=== PATIENT | female | born 1960 | race Caucasian/White ===

== ENCOUNTER → 2017-01-01 14:37 | Emergency (ER) | payer BC ==
--- NOTE | 2017-01-01 15:09 | ED ---
Complex/Multi-Sys Presentation - HPI Summary HPI Summary: Patient lost her balance and fell against the edge of a coffee table. She landed on her left ribs and thought she would be fine but today she has a bruise and pain with coughing, sneezing or deep breaths. She denies CP, SOB or abdominal pain. 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 Onset/Duration: Sudden Onset Timing: Constant Severity Currently: Severe Severity Initially: Mild Location: Pain At: - left ribs Character: Sharp Aggravating Factor(s): sneezing, coughing, deep breaths - Allergies/Home Medications Allergies/Adverse Reactions: Allergies Allergy/AdvReac Type Severity Reaction Status Date / Time No Known Allergies Allergy Verified 01/01/17 14:43 PMH/Surg Hx/FS Hx/Imm Hx Endocrine/Hematology History: Denies: Hx Anticoagulant Therapy, Hx Diabetes, Hx Thyroid Disease Cardiovascular History: Denies: Hx Hypertension, Hx Pacemaker/ICD Respiratory History: Denies: Hx Asthma, Hx Chronic Obstructive Pulmonary Disease (COPD) GI History: Denies: Hx Ulcer History: Denies: Hx Renal Disease Musculoskeletal History: Denies: Hx Scoliosis Sensory History: Denies: Hx Hearing Aid Neurological History: Reports: Hx Headaches Denies: Hx Dementia, Hx Seizures Psychiatric History: Denies: Hx Panic Disorder, Hx Substance Abuse - Cancer History Hx Chemotherapy: No Hx Radiation Therapy: No - Surgical History Surgery Procedure, Year, and Place: 2 - C SECTIONS Infectious Disease History: No Infectious Disease History: Reports: Hx Shingles Denies: Hx Clostridium Difficile, Hx Hepatitis, Hx Human Immunodeficiency Virus (HIV), Hx of Known/Suspected MRSA, Hx Tuberculosis, Hx Known/Suspected VRE , Hx Known/Suspected VRSA, History Other Infectious Disease, Traveled Outside the [place] in Last 30 Days - Family History Known Family History: Positive: None - Social History Occupation: Employed Full-time Lives: With Family Alcohol Use: Occasionally Substance Use Type: Reports: None Smoking Status (MU): Never Smoked Tobacco Review of Systems Negative: Chest Pain Negative: Shortness Of Breath Negative: Abdominal Pain Negative: Edema Positive: Bruising Negative: Weakness, Paresthesia, Numbness All Other Systems Reviewed And Are Negative: Yes Physical Exam Triage Information Reviewed: Yes Vital Signs On Initial Exam: Initial Vitals Temp Pulse Resp BP Pulse Ox 98.1 F 73 16 134/70 100 01/01/17 14:39 01/01/17 14:39 01/01/17 14:39 01/01/17 14:39 01/01/17 14:39 Vital Signs Reviewed: Yes Appearance: Positive: Well-Appearing, Well-Nourished, Pain Distress Skin: Positive: Warm, Skin Color Reflects Adequate Perfusion, Dry, Soft Head/Face: Positive: Normal Head/Face Inspection Eyes: Positive: EOMI, VERONICA, Conjunctiva Clear ENT: Positive: Hearing grossly normal Neck: Positive: Supple, Nontender Respiratory/Lung Sounds: Positive: Clear to Auscultation, Breath Sounds Present. Negative: Rales, Rhonchi, Subcutaneous Emphysema, Stridor, Tracheal Deviation, Wheezes Cardiovascular: Positive: RRR Abdomen Description: Positive: Nontender, Soft Bowel Sounds: Positive: Present Musculoskeletal: Negative: Edema Left, Edema Right Neurological: Positive: Sensory/Motor Intact, Alert, Oriented to Person Place, Time, NV Bundle Intact Distally, Normal Gait Psychiatric: Positive: Affect/Mood Appropriate AVPU Assessment: Alert Diagnostics - Vital Signs Vital Signs Temp Pulse Resp BP Pulse Ox 01/01/17 14:39 98.1 F 73 16 134/70 100 - Laboratory Lab Statement: Any lab studies that have been ordered have been reviewed, and results considered in the medical decision making process. - Radiology No standard instances Xray Interpretation: No Acute Changes Radiology Interpretation Completed By: Radiologist Complex Multi-Symp Course/Dx - Diagnoses Differential Diagnoses/HQI/PQRI: Aspiration, Closed Cranial Trauma, CVA, Metabolic Abnormality, Sepsis Provider Diagnoses: Contusion of rib on left side Discharge - Discharge Plan Condition: Stable Disposition: HOME Patient Education Materials: Rib Contusion (ED) Referrals: King Palmer MD [Primary Care Provider] - Additional Instructions: Please use ibuprofen 600mg three times daily with meals for the next 3-5 days to decrease pain. Apply ice or heat as needed. Maximum pain and swelling is 3-5 days after injury. Try to take a deep breath once every hour to decrease the risk of pneumonia. Follow-up with your primary care provider if you have concerns. Return to the emergency department if your symptoms worsen.
--- NOTE | 2017-01-01 15:41 | RAD ---
Indication: LEFT side rib pain following injury yesterday. Comparison: No relevant prior exams available on the [facility] [place]. Technique: 4 view LEFT unilateral rib series. Report: No rib fracture, pleural effusion, or pneumothorax evident. Unremarkable soft tissue contours. The heart appears enlarged. Unremarkable central pulmonary vasculature and mediastinal contours. IMPRESSION: No LEFT rib fracture evident.
[2017-01-01 16:08] VITALS: BP 154/67
== END | disposition home or self-care (01) ==
LOC: ED 14:37
DX: S20.212A Contusion of left front wall of thorax, initial encounter (principal); R05 Cough; R06.7 Sneezing; W19.XXXA Unspecified fall, initial encounter; Y93.9 Activity, unspecified; Y92.9 Unspecified place or not applicable; Y99.9 Unspecified external cause status
CPT/HCPCS: 99281

== ENCOUNTER 2017-01-06 16:45 | Emergency (ER) | payer BC ==
[2017-01-06] MEDS ORDERED: Ketorolac INJ* 60 MG/2 ML VIAL IM ONE (20:23)
--- NOTE | 2017-01-06 21:05 | RAD ---
HISTORY: Fall onto left rib pain COMPARISONS: January 01, 2017 VIEWS: 8, Frontal view of the chest with frontal and oblique views of the left hemithorax FINDINGS: There is questionable nondisplaced fracture of lateral aspect of the left 10th rib. There is minimal linear atelectasis of left lung base. There is no appreciable pneumothorax. IMPRESSION: QUESTIONABLE NONSPECIFIC FRACTURE OF LEFT 10TH RIB. NO PNEUMOTHORAX.
[2017-01-06] MEDS ORDERED: oxyCODONE/Acetamin 5/325 MG* TAB PO ONE (21:27)
--- NOTE | 2017-01-06 21:27 | ED ---
I, Shar,Carolann, scribed for Mohan Beal MD on 01/06/17 at 2025 . HPI Chest Pain - HPI Summary HPI Summary: This 56 y/o female presents to ED for persistnet left lateral rib pain since a week ago. Pt reports slipping and falling onto a coffee table at time of onset. Pt was seen for the same complaint last week, during which pt was sent home with 1-week work note, benign CXR, and pain medications. Pt decided to visit ED today when pt persists. Positive dyspnea. Deep breath, walking, and any movement makes the pain worse. Pt denies any PMHx. - History of Current Complaint Chief Complaint: EDShortnessOfBreath Time Seen by Provider: 01/06/17 20:19 Hx Obtained From: Patient, Medical Records Onset/Duration: Started Weeks Ago, Traumatic, Still Present Pain Intensity: 9 Pain Scale Used: 0-10 Numeric Chest Pain Location: Left Lateral Chest Pain Radiates: No Character: Sharp/Stabbing Aggravating Factor(s): Exertion, Movement, Deep Breaths Alleviating Factor(s): Rest Associated Signs and Symptoms: Positive: Chest Pain, Shortness of Breath. Negative: Fever - Allergy/Home Medications Allergies/Adverse Reactions: Allergies Allergy/AdvReac Type Severity Reaction Status Date / Time No Known Allergies Allergy Verified 01/01/17 14:43 PMH/Surg Hx/FS Hx/Imm Hx Endocrine/Hematology History: Denies: Hx Anticoagulant Therapy, Hx Diabetes, Hx Thyroid Disease Cardiovascular History: Denies: Hx Hypertension, Hx Pacemaker/ICD Respiratory History: Denies: Hx Asthma, Hx Chronic Obstructive Pulmonary Disease (COPD) GI History: Denies: Hx Ulcer History: Denies: Hx Renal Disease Musculoskeletal History: Denies: Hx Scoliosis Sensory History: Denies: Hx Hearing Aid Neurological History: Reports: Hx Headaches Denies: Hx Dementia, Hx Seizures Psychiatric History: Denies: Hx Panic Disorder, Hx Substance Abuse - Cancer History Hx Chemotherapy: No Hx Radiation Therapy: No - Surgical History Surgery Procedure, Year, and Place: 2 - C SECTIONS Infectious Disease History: No Infectious Disease History: Reports: Hx Shingles Denies: Hx Clostridium Difficile, Hx Hepatitis, Hx Human Immunodeficiency Virus (HIV), Hx of Known/Suspected MRSA, Hx Tuberculosis, Hx Known/Suspected VRE , Hx Known/Suspected VRSA, History Other Infectious Disease, Traveled Outside the [place] in Last 30 Days - Family History Known Family History: Negative: Other - Negative Breast CA - Social History Alcohol Use: Occasionally Hx Substance Use: No Substance Use Type: Reports: None Hx Tobacco Use: No Smoking Status (MU): Never Smoked Tobacco Review of Systems Negative: Fever Positive: Chest Pain - left lateral Positive: Shortness Of Breath All Other Systems Reviewed And Are Negative: Yes Physical Exam Triage Information Reviewed: Yes Vital Signs On Initial Exam: Initial Vitals Temp Pulse Resp BP Pulse Ox 98.0 F 65 20 125/69 100 01/06/17 16:48 01/06/17 16:48 01/06/17 16:48 01/06/17 16:48 01/06/17 16:48 Vital Signs Reviewed: Yes Appearance: Positive: Well-Appearing, Pain Distress - mild discomfort Skin: Positive: Warm, Other - eechymotic area lt lower lat chest wall Head/Face: Positive: Normal Head/Face Inspection Eyes: Positive: VERONICA ENT: Positive: Hearing grossly normal Neck: Positive: Supple Respiratory/Lung Sounds: Positive: Breath Sounds Present, Other - tende lt lat lower chest wall Cardiovascular: Positive: Normal Abdomen Description: Positive: Nontender, Soft Bowel Sounds: Positive: Present Musculoskeletal: Positive: Strength/ROM Intact Neurological: Positive: Sensory/Motor Intact, Alert, Oriented to Person Place, Time Psychiatric: Positive: Affect/Mood Appropriate - Damaso Coma Scale Coma Scale Total: 15 Diagnostics - Vital Signs Vital Signs Temp Pulse Resp BP Pulse Ox 01/06/17 18:47 98.5 F 76 20 126/63 100 01/06/17 17:55 97.6 F 68 20 112/71 100 01/06/17 16:50 98.0 F 69 20 125/69 100 01/06/17 16:48 98.0 F 65 20 125/69 100 - Laboratory Lab Statement: Any lab studies that have been ordered have been reviewed, and results considered in the medical decision making process. - Radiology Rib w/Chest Xray Interpretation: Positive (See Comments) - QUESTIONABLE NONSPECIFIC FRACTURE OF LEFT 10TH RIB. NO PNEUMOTHORAX. Radiology Interpretation Completed By: Radiologist Re-Evaluation - Re-Evaluation First Eval Re-Evaluation Time: 21:28 Change: Improved Comment: MD in room to update pt on X-ray imaging results. Plan of care involving discharge, pain medication to go, and outpatient f/u is discussed with pt. Chest Pain Course/Dx - Course Assessment/Plan: This 56 y/o female presents to ED for persistent left lateral rib pain since a week ago. Pt injured her left rib a week ago when she slipped and fell onto a coffee table. Pt was evaluated at ED and then was discharged with benign CXR and pain medication. Pt came back today when pain persisted. Unilateral left rib with Chest X-ray indicates questionable nonspecific fracture of 10th rib, negative PTX. Imaging studies were shared with pt, and she is at this time agreeable with discharge plan with pain meds, another 1- week work note, and outpatient follow up. - Diagnoses Provider Diagnoses: Left rib fracture Discharge - Discharge Plan Condition: Improved Disposition: HOME Patient Education Materials: Rib Fracture (ED) Forms: *Work Release Referrals: King Palmer MD [Primary Care Provider] - 2 Days The documentation as recorded by the Shar ceron Soohyun accurately reflects the service I personally performed and the decisions made by me, Mohan Beal MD.
[2017-01-06 21:38] VITALS: BP 137/70
== END 2017-01-06 21:41 | disposition home or self-care (01) ==
LOC: ED 16:45
DX: S22.32XA Fracture of one rib, left side, initial encounter for closed fracture (principal); R07.9 Chest pain, unspecified; R06.02 Shortness of breath; X58.XXXA Exposure to other specified factors, initial encounter; Y93.9 Activity, unspecified; Y92.9 Unspecified place or not applicable
CPT/HCPCS: 99282; A9270-GY; J1885

== ENCOUNTER 2018-08-07 16:47 | Emergency (ER) | payer BC ==
--- NOTE | 2018-08-07 16:52 | UC ---
Hip/Pelvis Pain - HPI Summary HPI Summary: 57 yo female presents with right sided lower back and right hip pain. She tells me that on 08/04 she fell on the ice and landed on her back. She was seen here on 08/05 for left rib pain and dx'd with a contusion. Since that time she has developed right sided lower back and hip pain that is worse with movement. She has been taking NSAIDs and baclofen with little relief. Denies radiation of pain , numbness, or tingling. Denies saddle anesthesia or loss of bowel/bladder control. - History Of Current Complaint Stated Complaint: HIP INJURY Time Seen by Provider: 08/07/18 16:49 Hx Obtained From: Patient Onset/Duration: Gradual Onset Severity Initially: Moderate Severity Currently: Severe Pain Intensity: 9 Pain Scale Used: 0-10 Numeric - Allergies/Home Medications Allergies/Adverse Reactions: Allergies Allergy/AdvReac Type Severity Reaction Status Date / Time No Known Allergies Allergy Verified 08/07/18 16:58 PMH/Surg Hx/FS Hx/Imm Hx - Additional Past Medical History Additional PMH: None Other History Of: Negative For: Anticoagulant Therapy - Surgical History Surgical History: Yes Surgery Procedure, Year, and Place: 2 - C SECTIONS - Family History Known Family History: Positive: Hypertension Negative: Other - Negative Breast CA - Social History Occupation: Employed Full-time Lives: With Family Alcohol Use: Occasionally Substance Use Type: None Smoking Status (MU): Never Smoked Tobacco - Immunization History Most Recent Tetanus Shot: > 10 years Review of Systems All Other Systems Reviewed And Are Negative: Yes Constitutional: Positive: Negative Skin: Positive: Negative Respiratory: Positive: Negative Cardiovascular: Positive: Negative Gastrointestinal: Positive: Negative Neurovascular: Positive: Negative Musculoskeletal: Positive: Other: - Right lower back and hip pain Neurological: Positive: Negative Psychological: Positive: Negative Physical Exam - Summary Physical Exam Summary: GENERAL: NAD. WDWN. No pain distress. SKIN: No rashes, sores, lesions, or open wounds. NECK: Supple. FROM. Nontender. No lymphadenopathy. CHEST: CTAB. No r/r/w. No accessory muscle use. Breathing comfortably and in no distress. CV: RRR. Without m/r/g. Pulses intact. Cap refill <2seconds MSK: TTP over RIGHT SI. Pain with flexion and extension of spine. Negative SLR b /l. Positive ANASTASIA for back pain on right. Strength 5/5 B/L LEs including dorsiflexion and plantar flexion. FROM B/L LEs. No edema. NEURO: Alert. Sensations intact B/L LEs L3-S1. PSYCH: Age appropriate behavior. Triage Information Reviewed: Yes Vital Signs: Vital Signs: Temp Pulse Resp BP Pulse Ox 97.6 F 66 16 140/73 99 08/07/18 16:52 08/07/18 16:52 08/07/18 16:52 08/07/18 16:52 08/07/18 16:52 Vital Signs Reviewed: Yes Hip Injury Course/Dx - Course Course Of Treatment: XR lumbar: IMPRESSION: #. New compared with January 01, 2017 although otherwise age indeterminate mild anterior. osteoporotic compression fracture of the T12 vertebral body. No gross radiographic acute. features. XR hip: IMPRESSION: #. No radiographic evidence for RIGHT hip fracture. As x-rays may be negative with. nondisplaced hip fracture if there is persistent clinical concern MRI or in setting of. contraindication to MRI or limitation in emergent access to MRI CT would be suggested. Discussed findings with pt. Advised to continue rest, ice, and will refill her muscle relaxer. Advised to f/ u with PCP for a recheck. - Differential Dx/Diagnosis Provider Diagnosis: Right hip pain, Low back pain Discharge - Sign-Out/Discharge Documenting (check all that apply): Patient Departure All imaging exams completed and their final reports reviewed: Yes - Discharge Plan Condition: Stable Disposition: HOME Prescriptions: Baclofen TAB* [Lioresal TAB*] 10 mg PO BID PRN #20 tab PRN Reason: Pain Lidocaine PATCH 5%* [Lidoderm 5% Patch*] 1 patch TRANSDERM DAILY PRN #1 box PRN Reason: Pain Patient Education Materials: Contusion in Adults (ED) Forms: *Work Release Referrals: King Palmer MD [Primary Care Provider] - Additional Instructions: If you develop a fever, shortness of breath, chest pain, new or worsening symptoms - please call your PCP or go to the ED. Your blood pressure was high at todays visit. Please see your primary provider within 4 weeks for recheck and re-evaluation. - Billing Disposition and Condition Condition: STABLE Disposition: Home - Attestation Statements Provider Attestation: I was available for consult. This patient was seen by the [facility]. The patient was not presented to, seen by, or examined by me. -Juan A
[2018-08-07 16:57] VITALS: BP 140/73
== END 2018-08-07 18:15 | disposition home or self-care (01) ==
LOC: UCEAST 16:47
DX: M25.551 Pain in right hip (principal); M54.5 Low back pain
CPT/HCPCS: 72110; 99212; G0463

== ENCOUNTER 2019-04-08 10:33 | Emergency (ER) | payer BC ==
[2019-04-08] MEDS ORDERED: Ibuprofen TAB* 600 MG PO ONE (10:45)
[2019-04-08] MEDS ORDERED: Acetaminophen TAB* 325 MG PO ONE (10:45)
--- NOTE | 2019-04-08 10:46 | ED ---
HPI Chest Pain - HPI Summary HPI Summary: 58 year old F presenting to [facility] with a chief complaint of right sided rib pain since falling off an air mattress and landing on her right side on hard wood floor last night. The patient rates the pain 8/10 in severity. Symptoms aggravated by deep breathing, movement, and exertion. Symptoms alleviated by nothing. Patient denies cough. Patient states she has been sleeping on a leaky air mattress 1-2 feet off the ground for the last several days as she has recently moved. Patient states she has chronic lower back pain since slipping on ice in July 2018. Patient states took 3 ibuprofen last night for her back pain but hasn't taken anything for the pain today. Patient denies taking any other medications. Surgical hx C-sections x2. Patient reports drinking alcohol occasionally, denies smoking cigarettes and using drugs. Medications reviewed. Allergies noted. - History of Current Complaint Chief Complaint: EDChestWallPain Time Seen by Provider: 04/08/19 10:36 Hx Obtained From: Patient Hx Last Menstrual Period: post Onset/Duration: Started Days Ago - 3, Still Present Timing: Constant Current Severity: Severe Pain Intensity: 8 Pain Scale Used: 0-10 Numeric Chest Pain Radiates: No Aggravating Factor(s): Exertion, Movement, Deep Breaths Alleviating Factor(s): Nothing Associated Signs and Symptoms: Positive: Negative - cough - Allergy/Home Medications Allergies/Adverse Reactions: Allergies Allergy/AdvReac Type Severity Reaction Status Date / Time No Known Allergies Allergy Verified 04/08/19 10:33 Home Medications: Home Medications NK [No Home Medications Reported] 04/08/19 [History Confirmed 04/08/19] PMH/Surg Hx/FS Hx/Imm Hx Endocrine/Hematology History: Denies: Hx Anticoagulant Therapy, Hx Diabetes, Hx Thyroid Disease Cardiovascular History: Denies: Hx Hypertension, Hx Pacemaker/ICD Respiratory History: Denies: Hx Asthma, Hx Chronic Obstructive Pulmonary Disease (COPD) GI History: Denies: Hx Ulcer History: Denies: Hx Renal Disease Musculoskeletal History: Denies: Hx Scoliosis Sensory History: Denies: Hx Hearing Aid Neurological History: Reports: Hx Headaches Denies: Hx Dementia, Hx Seizures Psychiatric History: Denies: Hx Panic Disorder, Hx Substance Abuse - Cancer History Hx Chemotherapy: No Hx Radiation Therapy: No - Surgical History Surgery Procedure, Year, and Place: 2 - C SECTIONS Infectious Disease History: No Infectious Disease History: Reports: Hx Shingles Denies: Hx Clostridium Difficile, Hx Hepatitis, Hx Human Immunodeficiency Virus (HIV), Hx of Known/Suspected MRSA, Hx Tuberculosis, Hx Known/Suspected VRE , Hx Known/Suspected VRSA, History Other Infectious Disease, Traveled Outside the [place] in Last 30 Days - Family History Known Family History: Positive: Hypertension Negative: Other - Negative Breast CA - Social History Alcohol Use: Occasionally Hx Substance Use: No Substance Use Type: Reports: None Hx Tobacco Use: No Smoking Status (MU): Never Smoked Tobacco Review of Systems Negative: Cough Positive: Other - right sided rib pain All Other Systems Reviewed And Are Negative: Yes Physical Exam - Summary Physical Exam Summary: Constitutional: Well-developed, Well-nourished, Alert. (-) Distressed Skin: Warm, Dry HENT: Normocephalic; Atraumatic Eyes: Conjunctiva normal Neck: Musculoskeletal ROM normal neck. (-) JVD, (-) Stridor, (-) Tracheal deviation Cardio: Rhythm regular, rate normal, Heart sounds normal; Intact distal pulses; The pedal pulses are 2+ and symmetric. Radial pulses are 2+ and symmetric. (-) Murmur Pulmonary/Chest wall: Effort normal. (-) Respiratory distress, (-) Wheezes, (-) Rales. Right anterior and lateral chest wall tenderness, no bruising Abd: Soft, (-) tenderness, (-) Distension, (-) Guarding, (-) Rebound Musculoskeletal: (-) Edema Lymph: (-) Cervical adenopathy Neuro: Alert, Oriented x3 Psych: Mood and affect Normal Triage Information Reviewed: Yes Vital Signs On Initial Exam: Initial Vitals Temp Pulse Resp BP Pulse Ox 97.7 F 72 16 147/86 97 04/08/19 10:34 04/08/19 10:34 04/08/19 10:34 04/08/19 10:34 04/08/19 10:34 Vital Signs Reviewed: Yes Diagnostics - Vital Signs Vital Signs Temp Pulse Resp BP Pulse Ox 04/08/19 10:34 97.7 F 72 16 147/86 97 - Laboratory Lab Statement: Any lab studies that have been ordered have been reviewed, and results considered in the medical decision making process. - Radiology Ribs with CXR Radiology Interpretation Completed By: Radiologist Summary of Radiographic Findings: NO DISPLACED RIB FRACTURE OR PNEUMOTHORAX. ED physician has reviewed this report. Re-Evaluation - Re-Evaluation First Eval Re-Evaluation Time: 12:46 Change: Improved Comment: patient feels better and is agreeable to discharge Chest Pain Course/Dx - Course Course Of Treatment: Patient is here with right-sided chest wall pain after falling off an air mattress. Patient had tenderness on exam with no overlying ecchymosis. Patient had negative x-ray for rib fracture or pneumothorax. - Diagnoses Provider Diagnoses: Chest wall contusion Discharge ED - Sign-Out/Discharge Documenting (check all that apply): Patient Departure - Discharge Patient Received Moderate/Deep Sedation with Procedure: No - Discharge Plan Condition: Stable Disposition: HOME Patient Education Materials: Chest Wall Pain (ED) Forms: *Work Release Referrals: King Palmer MD [Primary Care Provider] - 1 Day Additional Instructions: Take ibuprofen for pain. PLEASE RETURN TO EMERGENCY DEPARTMENT FOR ANY NEW OR WORSENING SYMPTOMS. Please follow up with your primary care physician. Please make all follow-ups in 1-3 days unless I advise you otherwise. - Billing Disposition and Condition Condition: STABLE Disposition: Home - Attestation Statements Document Initiated by Titoibe: Yes Documenting Scribe: Seema Brunson Provider For Whom Titoibe is Documenting (Include Credential): Ramón Stein MD Scribe Attestation: Seema Lopez, scribed for Ramón Stein MD on 04/08/19 at 1829. Scribe Documentation Reviewed: Yes Provider Attestation: The documentation as recorded by the Seema ceron accurately reflects the service I personally performed and the decisions made by me, Ramón Stein MD Status of Scribe Document: Viewed
[2019-04-08 12:53] VITALS: BP 134/71
== END 2019-04-08 12:48 | disposition home or self-care (01) ==
LOC: ED 10:33
DX: S20.219A Contusion of unspecified front wall of thorax, initial encounter (principal); W06.XXXA Fall from bed, initial encounter; Y92.009 Unspecified place in unspecified non-institutional (private) residence as the place of occurrence of the external cause
CPT/HCPCS: 99282; A9270-GY

== ENCOUNTER 2019-11-13 11:49 | Emergency (ER) | payer BC, OTHER ==
--- OUTSIDE RECORDS SUMMARY | 2019-11-13 11:58 | XMS REPORT | Continuity of Care Document ---
:1960 External Reference #:[id number] Author Name King Palmer M.D. 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 1units W06.xxxD King Palmer, 05/27/2019 Support Back Brace Diagnosis code M.D. -m54.5 Misc Calcitonin ([place]) 1 spray per 3units S22.080A King Palmer, 2018 nostril daily, M.DAbdi 200Unit/Act Solution alternate nostrils Baclofen take 1/2 to 1 30tabs M54.2 Emily Evelia 06/03/2018 10mg Tablets tablet by mouth Desai, PLANT SENIOR MANAGER two times daily as needed for spasms Ibuprofen take 1 tablet Unknown 600mg three times a day Tablets with meals Immunizations CPT Code Status Date Vaccine Lot # [id number] Given 04/22/2014 DO Not Use Split Influenza Virus Vaccine [id number] Given 12/01/2008 Tdap Tetanus, W Pertussis [id number] Vital Signs Date Vital Result Comment 09/16/2019 4:59pm BP Systolic 132 mmHg BP Diastolic 80 mmHg Heart Rate 64 /min Body Temperature 97.9 F Respiratory Rate 16 /min Height 62.75 inches 5'2.75" Weight 182.00 lb BMI (Body Mass Index) 32.5 kg/m2 07/15/2019 5:14pm BP Systolic 130 mmHg BP Diastolic 80 mmHg Heart Rate 68 /min Body Temperature 98.0 F Respiratory Rate 16 /min Height 62.75 inches 5'2.75" Weight 181.00 lb BMI (Body Mass Index) 32.3 kg/m2 Results Test Acquired Date Facility Test Result H/L Range Note Laboratory test 11/01/2019 [facility] [place], PCR Undetected Undetected 1 finding 1 SARS-CoV-2 RNA is not detected. ADDITIONAL INFORMATION Testing was performed using the quirino SARS-CoV-2 assay ([employer] on the quirino 6800 System. Fact sheets for this Emergency Use Authorization (EUA) assay can be found at the following links: For Healthcare Providers: https://www.fda.gov/media/866856/download For Patients: https://www.fda.gov/media/608698/download Test Performed by: [place] [address] Manager Welding: Harshal Calvin M.D. Ph.D.; IA# [id number] Procedures Date Code Description Status 09/07/2018 15533213 Mammogram Completed 05/06/2014 [id number] Mammogram Completed 01/24/2009 [id number] Colonoscopy Completed 12/21/2008 [id number] Mammogram Completed Medical Devices Description No Information Available Encounters Type Date Location Provider Dx Diagnosis Office Visit 11/04/2019 [facility] King Palmer, Z20.89 Contact w and 4:40p M.D. exposure to oth communicable diseases Office Visit 09/16/2019 [facility] Office King Palmer, M25.561 Pain in right knee 5:30p M.D. Office Visit 07/15/2019 [facility] Office Gertrudis C Linick, M54.5 Low back pain 5:30p PA W06.xxxD Fall from bed, subsequent encounter S23.41xD Sprain of ribs, subsequent encounter Office Visit 05/27/2019 5:30p Main Office Gertrudis Hernández, W06.xxxD Fall from bed, PA subsequent encounter S23.41xD Sprain of ribs, subsequent encounter M54.5 Low back pain Office Visit 05/06/2019 5:30p Main Office Gertrudis Hernández, W06.xxxD Fall from bed, PA subsequent encounter S23.41xD Sprain of ribs, subsequent encounter Assessments Date Code Description Provider 11/04/2019 Z20.89 Contact with and (suspected) exposure to King Palmer M.D. other communicable diseases 09/16/2019 M25.561 Pain in right knee King Palmer M.D. 07/15/2019 M54.5 Low back pain ELMER Evans 07/15/2019 W06.xxxD Fall from bed, subsequent encounter ELMER Evans 07/15/2019 S23.41xD Sprain of ribs, subsequent encounter ELMER Evans 05/27/2019 W06.xxxD Fall from bed, subsequent encounter ELMER Evans 05/27/2019 S23.41xD Sprain of ribs, subsequent encounter ELMER Evans 05/27/2019 M54.5 Low back pain ELMER Evans 05/06/2019 W06.xxxD Fall from bed, subsequent encounter ELMER Evans 05/06/2019 S23.41xD Sprain of ribs, subsequent encounter ELMER Evans Plan of Treatment No Information Available Functional Status Description No Information Available Mental Status Description No Information Available Referrals Refer to Reason for Referral Status Appt Date [facility] colonoscopy jw Sent [address] [place], [place] [id number] [phone]
--- OUTSIDE RECORDS SUMMARY | 2019-11-13 11:58 | XMS REPORT | Continuity of Care Document ---
:1960 External Reference #:[id number] Author Name King Palmer M.D. 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 -m54.5 Misc Calcitonin ([place]) 1 spray per 3units S22.080A King Palmer, 2018 nostril daily, M.DAbdi 200Unit/Act Solution alternate nostrils Baclofen take 1/2 to 1 30tabs M54.2 Emily Evelia 06/03/2018 10mg Tablets tablet by mouth Lloyd CORPORATE GIVING MANAGER two times daily as needed for spasms Ibuprofen take 1 tablet Unknown 600mg three times a day Tablets with meals Immunizations CPT Code Status Date Vaccine Lot # [id number] Given 04/22/2014 DO Not Use Split Influenza Virus Vaccine [id number] Given 12/01/2008 Tdap Tetanus, W Pertussis [id number] Vital Signs Date Vital Result Comment 09/16/2019 [...] Result H/L Range Note Laboratory test 11/01/2019 [facility] Covid19, PCR Undetected Undetected 1 finding 1 SARS-CoV-2 RNA is not detected. ADDITIONAL INFORMATION Testing was performed using the quirino SARS-CoV-2 assay ([employer] on the quirino 6800 System. Fact sheets for this Emergency Use Authorization (EUA) assay can be found at the following links: For Healthcare Providers: https://www.fda.gov/media/995960/download For Patients: https://www.fda.gov/media/543230/download Test Performed by: [place] [address] Cash Checker: Harshal Calvin M.D. Ph.D.; CLIA# [id number] Procedures Date Code Description Status 09/07/2018 [id number] Mammogram Completed 05/06/2014 [id number] Mammogram Completed 01/24/2009 [id number] Colonoscopy Completed 12/21/2008 [id number] Mammogram Completed Medical Devices Description No Information Available Encounters Type Date Location Provider Dx Diagnosis Office Visit 11/04/2019 [facility] King Palmer Z20.89 Contact w and 4:40p M.D. exposure to oth communicable diseases Office Visit 09/16/2019 [facility] Office King Palmer M25.561 Pain in right knee 5:30p M.D. Office Visit 07/15/2019 [facility] Gertrudis Hernández, M54.5 Low back pain 5:30p PA W06.xxxD Fall from bed, subsequent encounter S23.41xD Sprain of ribs, subsequent encounter Office Visit 05/27/2019 5:30p [facility] Office Gertrudis Hernández, W06.xxxD Fall from bed, PA subsequent encounter S23.41xD Sprain of ribs, subsequent encounter M54.5 Low back pain Assessments Date Code Description Provider 11/04/2019 Z20.89 Contact with and (suspected) exposure to King Palmer M.D. other communicable diseases 09/16/2019 M25.561 Pain in right knee King Palmer M.D. 07/15/2019 M54.5 Low back pain ELMER Evans 07/15/2019 W06.xxxD Fall from bed, subsequent encounter ELEMR Evans 07/15/2019 S23.41xD Sprain of ribs, subsequent encounter ELMER Evans 05/27/2019 W06.xxxD Fall from bed, subsequent encounter ELMER Evans 05/27/2019 S23.41xD Sprain of ribs, subsequent encounter ELMER Evans 05/27/2019 M54.5 Low back pain ELMER Evans Plan of Treatment No Information Available Functional Status Description No Information Available Mental Status Description No Information Available Referrals Refer to Reason for Referral Status Appt Date [facility] colonoscopy jw Sent [address] [place] [address] [phone]
--- NOTE | 2019-11-13 12:55 | ED ---
Abdominal Pain/Female - HPI Summary HPI Summary: Pt. is a 59 y.o female who presents to the ER for right sided flank pain x 2-3 days. Pt. denies injury or falls. Pain is intermittent. No exacerbating factors. Pt. denies fever, cough, SOB, chest pain, V/D, or urinary sxs. NO significant past medical hx. Sxs are moderate in severity. No current modifying factors. - History of Current Complaint Chief Complaint: EDGeneral Stated Complaint: RIGHT SIDE PAIN Time Seen by Provider: 11/13/19 12:37 Hx Obtained From: Patient Hx Last Menstrual Period: post Pain Intensity: 4 Allergies/Adverse Reactions: Allergies Allergy/AdvReac Type Severity Reaction Status Date / Time No Known Allergies Allergy Verified 11/13/19 11:53 Home Medications: Home Medications NK [No Home Medications Reported] 04/08/19 [History Confirmed 04/08/19] PMH/Surg Hx/FS Hx/Imm Hx Previously Healthy: Yes Endocrine/Hematology History: Denies: Hx Anticoagulant Therapy, Hx Diabetes, Hx Thyroid Disease Cardiovascular History: Denies: Hx Hypertension, Hx Pacemaker/ICD Respiratory History: Denies: Hx Asthma, Hx Chronic Obstructive Pulmonary Disease (COPD) GI History: Denies: Hx Ulcer History: Denies: Hx Renal Disease Musculoskeletal History: Denies: Hx Scoliosis Sensory History: Denies: Hx Hearing Aid Neurological History: Reports: Hx Headaches Denies: Hx Dementia, Hx Seizures Psychiatric History: Denies: Hx Panic Disorder, Hx Substance Abuse - Cancer History Hx Chemotherapy: No Hx Radiation Therapy: No - Surgical History Surgery Procedure, Year, and Place: 2 - C SECTIONS Infectious Disease History: No Infectious Disease History: Reports: Hx Shingles Denies: Hx Clostridium Difficile, Hx Hepatitis, Hx Human Immunodeficiency Virus (HIV), Hx of Known/Suspected MRSA, Hx Tuberculosis, Hx Known/Suspected VRE , Hx Known/Suspected VRSA, History Other Infectious Disease, Traveled Outside the [place] in Last 30 Days - Family History Known Family History: Positive: Hypertension Negative: Other - Negative Breast CA - Social History Occupation: Employed Full-time Lives: With Family Alcohol Use: Occasionally Hx Substance Use: No Substance Use Type: Reports: None Hx Tobacco Use: No Smoking Status (MU): Never Smoked Tobacco Review of Systems Constitutional: Negative Negative: Fever, Chills Cardiovascular: Negative Negative: Palpitations, Chest Pain Respiratory: Negative Negative: Shortness Of Breath, Cough Gastrointestinal: Negative Negative: Abdominal Pain, Vomiting, Diarrhea Positive: flank pain. Negative: dysuria, hematuria Neurological/Mental Status: Negative All Other Systems Reviewed And Are Negative: Yes Physical Exam Triage Information Reviewed: Yes Vital Signs On Initial Exam: Initial Vitals Temp Pulse Resp BP Pulse Ox 98.4 F 83 16 130/72 96 11/13/19 11:51 11/13/19 11:51 11/13/19 11:51 11/13/19 11:51 11/13/19 11:51 Vital Signs Reviewed: Yes Appearance: Positive: Well-Appearing - Pt. sitting on bed in NAD. Skin: Positive: Warm, Dry Head/Face: Positive: Normal Head/Face Inspection Eyes: Positive: Normal, EOMI Neck: Positive: Supple Respiratory/Lung Sounds: Positive: Clear to Auscultation, Breath Sounds Present. Negative: Rales, Rhonchi, Wheezes Cardiovascular: Positive: Normal, RRR Abdomen Description: Positive: Other: - abd. is soft with mild tenderness to RUQ and right flank. No rebound or guarding. Negative garza. Neurological: Positive: Normal, CN Intact II-III Psychiatric: Positive: Affect/Mood Appropriate Procedures - Sedation Patient Received Moderate/Deep Sedation with Procedure: No Diagnostics - Vital Signs Vital Signs Temp Pulse Resp BP Pulse Ox 11/13/19 11:51 98.4 F 83 16 130/72 96 - Laboratory Result Diagrams: 11/13/19 13:13 11/13/19 13:13 Lab Statement: Any lab studies that have been ordered have been reviewed, and results considered in the medical decision making process. Abdominal Pain Fem Course/Dx - Course Course Of Treatment: Pt. with mild right sided pain. Notes pain 3/10 at this time. Afebrile. Labs unremarkable. CXR negative for acute findings. U/A shows RBCs without signs of infection. Will obtain CT to evaluate for kidney stone. CT per radiology: 1. CHOLELITHIASIS WITH NO EXTRAHEPATIC BILIARY DUCTAL DILATATION. 2. NO NEPHROLITHIASIS OR HYDRONEPHROSIS. 3. SUBCENTIMETER STRUCTURE IN THE SUPERIOR POLE OF LEFT KIDNEY IS INCOMPLETELY. CHARACTERIZED. RECOMMEND ELECTIVE ULTRASOUND TO DELINEATE SOLID VERSUS CYSTIC NATURE. 4. CHRONIC APPEARING COMPRESSION DEFORMITY OF L1. Suspect pain is secondary to cholelithiasis, no signs of cholecystitis on CT. Normal WBCs, bili, and afebrile. Results discussed. Discussed diet changes. Pt. will f.u with pcp for surgical referral and further eval of kidney mass. Pt. will return to ER for increased pain, fever, vomiting, or if concerned - Diagnoses Provider Diagnoses: Kidney mass, Cholelithiasis - Critical Care Time Critical Care Statement: Critical care time is provided exclusive of any time spent performing procedures. Discharge ED - Sign-Out/Discharge Documenting (check all that apply): Patient Departure - Discharge Plan Condition: Good Disposition: HOME Patient Education Materials: Gallstones (ED), Kidney Cyst (ED) Referrals: King Palmer MD [Primary Care Provider] - Luis Carlos Mena MD [Medical Doctor] - Additional Instructions: Schedule a follow up appointment with PCP and surgical clinic to discuss electively having gallbladder removed due to stones Avoid greasy/fatty foods Return to ER for increased pain, fever, vomiting, or if concerned - Billing Disposition and Condition Condition: GOOD Disposition: Home
[2019-11-13 13:23] LABS: ABS Lymphocytes 0.7 10^3/ul (1.0-4.8); ABS Monocytes 0.4 10^3/ul (0-0.8); ABS Neutrophils 4.6 10^3/ul (1.5-7.7); Eosinophil % 0.4 %; Hematocrit 41 % (35-47); Hemoglobin 14.2 g/dL (12.0-16.0); Mean Corpuscular HGB Conc 35 g/dL (31-36); Mean Corpuscular Hemoglobin 32 pg (27-31); Mean Corpuscular Volume 92 fL (80-97); Mean Platelet Volume 7.2 fL (7.4-10.4); Platelet Count 303 10^3/uL (150-450); Red Blood Count 4.42 10^6 /uL (3.70-4.87); Red Cell Distribution Width 13 % (10-15); White Blood Count 5.8 10^3/uL (3.5-10.8)
[2019-11-13 13:24] LABS: Urine Appearance Clear; Urine Bilirubin Negative (Negative); Urine Blood 2+ (Negative); Urine Color Yellow; Urine Glucose Negative (Negative); Urine Ketones Negative (Negative); Urine Nitrite Negative (Negative); Urine Protein Negative (Negative); Urine Specific Gravity 1.012 (1.010-1.030); Urine Urobilinogen Negative (Negative)
[2019-11-13 13:26] LABS: Urine Bacteria Absent (Absent); Urine Red Blood Cell Trace(0-2/hpf) (Absent); Urine White Blood Cell Trace(0-5/hpf) (Absent)
[2019-11-13 13:39] LABS: Albumin 4.1 g/dL (3.2-5.2); Albumin/Globulin Ratio 1.4 (1-3); BUN/Creatinine Ratio 18.8 (8-20); Calcium 9.2 mg/dL (8.6-10.3); EGFR African American 104.7 (>60); EGFR Non-African American 86.5 (>60); Globulin 2.9 g/dL (2-4); Potassium 3.8 mmol/L (3.5-5.0); Total Bilirubin 0.4 mg/dL (0.2-1.0)
[2019-11-13 16:30] VITALS: BP 119/80
== END 2019-11-13 16:30 | disposition home or self-care (01) ==
LOC: ED 11:49
DX: N28.89 Other specified disorders of kidney and ureter (principal); K80.20 Calculus of gallbladder without cholecystitis without obstruction; R10.84 Generalized abdominal pain
CPT/HCPCS: 36415; 71045; 74176; 80053; 81003; 81015; 85025; 87086; 99282